=== PATIENT | male | born 1990 | race Caucasian/White ===

== ENCOUNTER 2019-04-27 12:04 | Emergency (ER) | payer BC, SELFPAY ==
[2019-04-27 12:04] VITALS: BP 129/79; PULSE 81; RESP 17; TEMP 37; O2SAT 95; BMI 25.7
--- NOTE | 2019-04-27 12:54 | ED.DCSUM_ITS ---
- ER Visit Summary Date of Service: 04/27/19 Chief Complaint: Laceration History of Present Illness: The patient is a 28 M who reports that a 2 x 6 out of the rafters and hit him on the top of the head. He did not have a loss of consciousness. He is not on anticoagulants. He reports he has an aching pain that is 4-10 in severity. He denies any numbness or weakness in his arms or legs. No neck pain. He denies other injuries. Physical Examination: Vitals: Stable. Afebrile. Head: 8 cm laceration to the right side of the top of his scalp. No active bleeding. Neck: No vertebral tenderness. Full ROM without difficulty. Cleared by NEXUS criteria. Back: No vertebral tenderness. General: A&O x 3. NAD. Cardiovascular exam: Regular rate and rhythm, no murmur, rub or gallop. Respiratory exam: Chest nontender. No crepitus. Clear to auscultation bilaterally. No wheezes or stridor. Abdominal exam: Soft, nontender, nondistended, normal bowel sounds. No pain in RUQ or LUQ specifically. No peritoneal signs. Extremity: Atraumatic. No pain with range of motion. Emergency Department Course and Treatment: Patient was treated with ibuprofen. He had his wound anesthetized and repaired. He tolerated this well. Treatment Plan: Patient will be discharged with instructions to follow-up with Dr. Wakefield in 10 days for staple removal. Instructed use Tylenol and/or ibuprofen for pain. Return to the emergency department for any worsening symptoms. Disposition: To home in improved and stable condition. Impression: 1. Scalp laceration, 8 cm, repaired. Procedure note: Wound was cleansed with chlorhexidine soap. Anesthetized with 1% lidocaine without epinephrine. Copiously irrigated with normal saline. Wound was explored there is no foreign material present. It was closed with 10 aj. The patient tolerated it well. This note was generated with [employer] dictation software. It may contain incorrect words, spelling, and punctuation that were not noted in review of the chart prior to signing ED Disposition - Plan for ED Patient: Instructions: LACERATION, Scalp Referrals: Ciarra Wakefield DO [STAFF PHYSICIAN] - 10 Day for suture removal
[2019-04-27] MEDS: Ibuprofen 400 MG Tablet 800 MG PO (12:59)
== END 2019-04-27 14:55 | disposition home or self-care (01) ==
PROVIDERS: Emergency Provider Emergency Medicine
DX: S01.01XA Laceration without foreign body of scalp, initial encounter (principal); W22.8XXA Striking against or struck by other objects, initial encounter
CPT/HCPCS: 12004; 99283